=== PATIENT | male | born 1980 | race Caucasian/White ===

== ENCOUNTER 2023-01-06 00:25 | Emergency (ER) | payer MEDICAID, SELFPAY ==
[2023-01-06 00:49] VITALS: BP 130/74; PULSE 79; RESP 14; TEMP 37.2; O2SAT 99; BMI 23.6
[2023-01-06 00:54] VITALS: BP 120/89; PULSE 105; O2SAT 98
--- NOTE | 2023-01-06 02:04 | ED_ITS ---
Documented by User: Mayra Villela TRANSPORTATION TECHNICIAN-C 01/06/23 02:35 HPI - General Adult General: Chief complaint: General Medical Stated complaint: CONSTIPATION Time Seen by Provider: 01/06/23 00:55 History of Present Illness: Patient is brought in by EMS for constipation. Patient is sleeping in the room when I enter the room. He does arouse to verbal stimuli. He states that he is detoxing from fentanyl and became very dehydrated and then had a very hard large bowel movement because his rectum to bleed. He reports that his last dose of fentanyl was 5 hours ago. He reports that he has been eating and drinking today. He states that he is currently having 0 pain after his bowel movement and he is no longer bleeding. Associated symptoms: Deny chest pain, dyspnea, nausea, palpitations or vomiting Review of Systems Const: Reports: fatigue; Denies: fever(s) or chills Card: Denies: chest pain, palpitations or irregular heart rhythm Resp: Denies: dyspnea, productive cough or non-productive cough GI: Reports: constipation and pain on defecation; Denies: abdominal pain, nausea or vomiting : Reports: testicular pain (Right side testicle) and other (New sexual partner) Physical Exam Const: OTHER: Patient is mostly resting in the bed but arouses to soft verbal stimuli. Is flat a fact minimally cooperative with questioning. Neck/C-Spine: COMMON NORMALS: no JVD Resp: COMMON NORMALS: normal respiratory effort, No use of accessory muscles and clear to auscultation bilaterally AUSCULTATION: clear to auscultation bilaterally Cardio: COMMON NORMALS: no JVD, regular rate, regular rhythm, S1 normal heart sound present and S2 normal heart sound present RATE: regular rate RHYTHM: regular rhythm HEART SOUNDS: S1 normal heart sound present and S2 normal heart sound present GI: RECTAL EXAM: Yes visual inspection normal, Yes normal sphincter tone, No hemorrhoids and Yes other (Hemoccult stool not done; however, no blood noted on exam) : PENIS: normal penis and circumcised SCROTUM: Yes Cremasteric reflex present and Yes Scrotal tenderness present (Tenderness to palpation right testicle with no definitive mass appreciated.) Course Vital Signs: Vital signs: Vital Signs Temperature 99 F 01/06/23 00:49 Pulse Rate 105 H 01/06/23 00:54 Respiratory Rate 16 01/06/23 02:50 Blood Pressure 139/84 01/06/23 02:50 Pulse Oximetry 98 01/06/23 00:54 Oxygen Delivery Me thod 01/06/23 00:54 MDM - General Adult Medical Decision Making 42-year-old male in today for rectal bleeding after large hard stool was passed. Patient also reports that he is detoxing from fentanyl and his last dose was 5 hours ago. Patient states that he uses 3-5 times daily. He states that he should have came in because now he has better. Patient does state as I was leaving the room but that he has some pain in his right side testicle ongoing for about a week. He states that he has a new sexual partner and would like to be tested for STDs. Urine for gonorrhea chlamydia is done today. Advised him that we will notify him of any positive results to make sure that he has a good phone number on file. Patient request to be admitted for detox. Place an order with case management to help facilitate patient getting in contact with rehab for outpatient treatment. Encourage patient to avoid sexual activity until he is positive of his STD testing results. Encourage patient to stop fentanyl abuse. Make sure that he is staying well-hydrated and eating plenty of fiber to help with constipation. Follow-up with primary care provider. Return to the ER for new or worsening symptoms Discharge Plan Discharge Patient Disposition: Home Clinical Impression: Fentanyl use disorder, mild, abuse, Constipation, Sexual behavior with high risk of exposure to communicable disease Condition: Stable Discharge Orders: Discharge ED (Routine); Ordered 01/06/23 Ordered By: Mayra Villela Discharge Diet: As Directed Discharge Activity: Resume usual activity Patient Instructions: Opioid Withdrawal (ED), Safe Sex Practices for Adolescents (ED), Narcotic Use Disorder (ED) Activity Restrictions/Additional Instructions: I recommend refraining from sexual activity until you are certain of your test results. I recommend refraining from fentanyl use/abuse. I will place an order to case management to see if we can assist in helping you to locate a rehabilitation facility for treatment. Make sure that you are staying well-hydrated and increasing fiber in your diet to help with the constipation. Return to the ER as needed for new or worsening symptoms. Coding Level of Care Code ED [employer] for Nathalieg Fwd Documented by User: Ben Diehl DO 01/06/23 07:07 HPI - General Adult General: Chief complaint: General Medical Stated complaint: CONSTIPATION Time Seen by Provider: 01/06/23 00:55 Course Vital Signs: Vital signs: Vital Signs Temperature 99 F 01/06/23 00:49 Pulse Rate 105 H 01/06/23 00:54 Respiratory Rate 16 01/06/23 02:50 Blood Pressure 139/84 01/06/23 02:50 Pulse Oximetry 98 01/06/23 00:54 Oxygen Delivery Me thod 01/06/23 00:54 MDM - General Adult Medical Decision Making 42-year-old male in today for rectal bleeding after large hard stool was passed. Patient also reports that he is detoxing from fentanyl and his last dose was 5 hours ago. Patient states that he uses 3-5 times daily. He states that he sh ould have came in because now he has better. Patient does state as I was leaving the room but that he has some pain in his right side testicle ongoing for about a week. He states that he has a new sexual partner and would like to be tested for STDs. Urine for gonorrhea chlamydia is done today. Advised him that we will notify him of any positive results to make sure that he has a good phone number on file. Patient request to be admitted for detox. Place an order with case management to help facilitate patient getting in contact with rehab for outpatient treatment. Encourage patient to avoid sexual activity until he is positive of his STD testing results. Encourage patient to stop fentanyl abuse. Make sure that he is staying well-hydrated and eating plenty of fiber to help with constipation. Follow-up with primary care provider. Return to the ER for new or worsening symptoms Chart reviewed and patient discussed with midlevel. Agree with assessment and plan. Discharge Plan Discharge Patient Disposition: Home Clinical Impression: Fentanyl use disorder, mild, abuse, Constipation, Sexual behavior with high risk of exposure to communicable disease Condition: Stable Discharge Orders: Discharge ED (Routine); Ordered 01/06/23 Ordered By: Mayra Villela Discharge Diet: As Directed Discharge Activity: Resume usual activity Patient Instructions: Opioid Withdrawal (ED), Safe Sex Practices for Adolescents (ED), Narcotic Use Disorder (ED) Activity Restrictions/Additional Instructions: I recommend refraining from sexual activity until you are certain of your test results. I recommend refraining from fentanyl use/abuse. I will place an order to case management to see if we can assist in helping you to locate a rehabilitation facility for treatment. Make sure that you are st aying well-hydrated and increasing fiber in your diet to help with the constipation. Return to the ER as needed for new or worsening symptoms. Coding Level of Care Code ED [employer] for Rolanda Taylor
[2023-01-06 02:50] VITALS: BP 139/84; RESP 16
--- NOTE | 2023-01-09 15:06 | DCPLANNER ---
manager risk management had message to speak with patient about rehab centers. Patient would like information sent to him, nurse outreach case manager sent patient information on the different rehab facilities in the area.
--- NOTE | 2023-01-10 13:45 | DCPLANNER ---
Addendum entered by Mariana Connors 01/11/23 14:46: produce department manager called patient due to no primary care physician - patient states that he does not live in the area, and declines at this time Original Note: produce department manager due to no primary care physician - no answer at this time
== END 2023-01-06 02:53 | disposition home or self-care (01) ==
PROVIDERS: Emergency Provider Nurse Practitioner Family
DX: K59.00 Constipation, unspecified (principal); F11.10 Opioid abuse, uncomplicated; Z72.51 High risk heterosexual behavior
CPT/HCPCS: 87491; 87591; 99283

== ENCOUNTER 2023-08-28 23:46 | Emergency (ER) | payer MEDICAID, SELFPAY ==
[2023-08-28 23:48] VITALS: BP 158/79; PULSE 75; RESP 20; TEMP 36.8; O2SAT 100; BMI 20.7
--- NOTE | 2023-08-28 23:49 | XRR_ITS ---
PROCEDURE INFORMATION: Exam: XR Chest Exam date and time: 08/29/2023 12:22 AM Age: 43 years old Clinical indication: Tachypnea; Patient HX: Smoker, no HX of cancer, cp, PT says he has high BP and heart is racing, PT is an inmate and says he is detoxing from suboxone. ; Additional info: Chest pain TECHNIQUE: Imaging protocol: Radiologic exam of the chest. Views: 1 view. COMPARISON: No relevant prior studies available. FINDINGS: Lungs: Unremarkable. No consolidation. Pleural spaces: Unremarkable. No pleural effusion. No pneumothorax. Heart/Mediastinum: Unremarkable. No cardiomegaly. Bones/joints: Unremarkable. XR/XR chest 1V portable [id number] IMPRESSION: No acute findings.
--- NOTE | 2023-08-28 23:49 | ECG_ITS ---
[facility] Test Date: 2023-08-28 Pat Name: Ladarius Ch Department: Room: Gender: Male Legal Consultant: : 1980 Requested By: Mark Vega Order Number: [id number] Stephenie MD: Rashid Lira M.D. Measurements Intervals [place] Rate: 62 P: -47 OH: 155 QRS: 70 QRSD: 93 T: 60 QT: 384 QTc: 392 Interpretive Statements SINUS RHYTHM No previous ECG available for comparison Electronically Signed On 08-29-2023 8:51:34 DISTRICT SUPERVISOR by Rashid Lira M.D. [email or web address]
[2023-08-29 00:36] LABS: Troponin(5th) Baseline 7 ng/L (0-15)
[2023-08-29 00:37] LABS: Alanine Aminotransferase 23 U/L (0-41); Albumin Level 4.5 g/dL (3.5-5.2); Alkaline Phosphatase 85 U/L (40-130); Anion Gap 15.2 (5-19); Aspartate Amino Transferase 12 U/L (0-40); Blood Urea Nitrogen 12 mg/dL (6-20); Calcium 9.2 mg/dL (8.5-10.5); Carbon Dioxide 25 mmol/L (22-29); Chloride 103 mmol/L (98-107); Globulin 2.2 g/dL (1.3-4.6); Glomerular Filtration Rate 105.5 mL/min (90-130); Glucose 89 mg/dL (65-115); Osmolality Calculated 287 mOsm/kg (285-295); Potassium 4.2 mmol/L (3.5-5.1); Sodium 139 mmol/L (136-145); Total Bilirubin 0.4 mg/dL (0.15-1.2); Total Protein 6.7 g/dL (6.6-8.7)
[2023-08-29 00:38] LABS: Basophils # 0.1 10^3/uL (0.0-0.1); Eosinophils # 0.3 10^3/uL (0.0-0.8); Eosinophils % 3.8 %; Hematocrit 40.8 % (37-53); Lymphocytes # 2.3 10^3/uL (0.8-4.8); Lymphocytes % 27.6 %; Mean Corpuscular HGB Conc 34.1 g/dL (30-55); Mean Corpuscular Hemoglobin 27.3 pg (27-33); Mean Platelet Volume 10.7 fL (7.4-10.4); Monocytes # 0.9 10^3/uL (0.2-0.9); Monocytes % 10.4 %; Neutrophils # 4.67 10^3/uL (1.8-7.7); Nucleated Red Blood Cells % 0 %; Platelet Count 267 10^3/cmm (157-399); Red Cell Distribution Width 12.8 % (12.1-15.1); White Blood Count 8.19 10^3/uL (3.29-11.43)
--- NOTE | 2023-08-29 00:41 | W.ED.CHESTPA ---
HPI - Chest Pain General: Chief Complaint: Chest Pain Stated Complaint: SOB, CP Time Seen by Provider: 08/28/23 23:48 History of Present Illness: patient presents to the ER with complaints of intermittent chest pain, shortness of breath and nausea and vomiting today. Patient states he is in half-way and is been not getting his Suboxone and has been on for quite some time. Patient thinks he is detoxing off of Suboxone. Patient has done this several times in the past when he has been in half-way. Patient has no cardiac history except hypertension. Patient has no allergies. No surgeries. Review of Systems General: Reports: 10 or more systems reviewed and unremarkable except in HPI and below Physical Exam Const: COMMON NORMALS: no acute distress, average body habitus, patient oriented x3, no limitations, healthy appearing, alert and well nourished HENMT: COMMON NORMALS: normocephalic, atraumatic, hearing grossly normal bilaterally, external ears normal, Normal external nose present, moist oral mucous membranes and oropharynx normal HEAD & SCALP: normocephalic and atraumatic NOSE: Normal external nose present EXTERNAL EAR: Yes external ears normal Neck/C-Spine: COMMON NORMALS: no JVD Chest: COMMONS NORMALS: normal inspection of the chest and normal palpation of entire chest wall Resp: COMMON NORMALS: normal respiratory effort, No retractions, No use of accessory muscles and clear to auscultation bilaterally AUSCULTATION: clear to auscultation bilaterally Cardio: COMMON NORMALS: no JVD, regular rate, regular rhythm, S1 normal heart sound present, S2 normal heart sound present, No gallops present (Cardio), No clicks present (Cardio), No murmurs present (Cardio) and No rub (Cardio) RATE: regular rate RHYTHM: regular rhythm HEART SOUNDS: S1 normal heart sound present and S2 normal heart sound present GI: COMMON NORMALS: Normal to inspection, nondistended, normoactive bowel sounds present, Soft to palpation, non-tender, No hepatosplenomegaly present and no masses PALPATION: Yes Soft to palpation and Yes No hepatosplenomegaly present : COMMON NORMALS: Yes no CVA tenderness BLADDER/KIDNEY EXAM: Yes no CVA tenderness Back/Pelvis: COMMON NORMALS: no CVA tenderness Neuro: COMMON NORMALS: patient oriented x3 SENSORIUM/ORIENTATION: Yes alert Course Vital Signs: Vital signs: Vital Signs Temperature 98.2 F 08/28/23 23:48 Pulse Rate 75 08/28/23 23:48 Respiratory Rate 20 H 08/28/23 23:48 Blood Pressure 158/79 08/28/23 23:48 Pulse Oximetry 100 08/28/23 23:48 Oxygen Delivery Me thod Room Air 08/28/23 23:48 MDM - Chest Pain Medical Decision Making Upon further discussion with the nurses patient stated to them that he made up the story about having chest pain just to get his Suboxone. Patient is denying the second troponin draw. Patient be discharged back to half-way. Differential Diagnosis Unlikely acute massive pulmonary embolism, acute respiratory failure, acute myocardial infarction, cardiac arrest or sudden cardiac Medical Records I reviewed the patient's medical records. Lab Data I reviewed the patient's lab results. 08/29/23 00:34 08/28/23 00:13 Radiology Impressions Chest X-Ray 08/28/23 23:49 IMPRESSION: No acute findings. Laboratory Results WBC 8.19 10^3/uL (3.29-11.43) 08/29/23 00:34 Corrected WBC Cancelled 08/28/23 00:13 RBC 5.10 10^6/uL (3.85-5.65) 08/29/23 00:34 Hgb 13.90 g/dL (11.27-16.99) 08/29/23 00:34 Hct 40.8 % (37-53) 08/29/23 00:34 MCV 80.0 fl (82-101) L 08/29/23 00:34 MCH 27.3 pg (27-33) 08/29/23 00:34 MCHC 34.1 g/dL (30-55) 08/29/23 00:34 RDW 12.8 % (12.1-15.1) 08/29/23 00:34 Plt Count 267 10^3/cmm (157-399) 08/29/23 00:34 MPV 10.7 fL (7.4-10.4) H 08/29/23 00:34 Gran % Cancelled 08/28/23 00:13 Neut % (Auto) 57.0 % 08/29/23 00:34 Lymph % (Auto) 27.6 % 08/29/23 00:34 Sampson % (Auto) 10.4 % 08/29/23 00:34 Eos % (Auto) 3.8 % 08/29/23 00:34 Baso % (Auto) 1.0 % 08/29/23 00:34 Neut # (Auto) 4.67 10^3/uL (1.8-7.7) 08/29/23 00:34 Lymph # (Auto) 2.3 10^3/uL (0.8-4.8) 08/29/23 00:34 Sampson # (Auto) 0.9 10^3/uL (0.2-0.9) 08/29/23 00:34 Eos # (Auto) 0.3 10^3/uL (0.0-0.8) 08/29/23 00:34 Baso # (Auto) 0.1 10^3/uL (0.0-0.1) 08/29/23 00:34 Absolute Gran (auto) Cancelled 08/28/23 00:13 Nucleated RBC % (auto) 0 % 08/29/23 00:34 Nucleated RBCs # 0.0 /100WBC 08/29/23 00:34 Sodium 139 mmol/L (136-145) 08/28/23 00:13 Potassium 4.2 mmol/L (3.5-5.1) 08/28/23 00:13 Chloride 103 mmol/L (98-107) 08/28/23 00:13 Carbon Dioxide 25 mmol/L (22-29) 08/28/23 00:13 Anion Gap 15.2 (5-19) 08/28/23 00:13 BUN 12 mg/dL (6-20) 08/28/23 00:13 Creatinine 0.8 mg/dL (0.7-1.2) 08/28/23 00:13 GFR Calculation 105.5 mL/min (90-130) 08/28/23 00:13 Glucose 89 mg/dL (65-115) 08/28/23 00:13 Calculated Osmolality 287 mOsm/kg (285-295) 08/28/23 00:13 Calcium 9.2 mg/dL (8.5-10.5) 08/28/23 00:13 Total Bilirubin 0.4 mg/dL (0.15-1.2) 08/28/23 00:13 AST 12 U/L (0-40) 08/28/23 00:13 ALT 23 U/L (0-41) 08/28/23 00:13 Alkaline Phosphatase 85 U/L (40-130) 08/28/23 00:13 Troponin T Baseline 7 ng/L (0-15) 08/28/23 00:13 Total Protein 6.7 g/dL (6.6-8.7) 08/28/23 00:13 Albumin 4.5 g/dL (3.5-5.2) 08/28/23 00:13 Globulin 2.2 g/dL (1.3-4.6) 08/28/23 00:13 All radiology interpretation(s) finalized by discharge EKG Data EKG 1: I personally reviewed and interpreted this EKG as follows: EKG interpretation date: 08/28/23 EKG interpretation time: 23:50 Prior EKG tracings: not available for review Interpretation: EKG shows ventricular rate 62 beats a minute, DE interval 155, QRS duration 93, QTc of 390, sinus rhythm with no ST-T wave changes. Discharge Plan Discharge Patient Disposition: Home Clinical Impression: Malingerer Condition: Stable Discharge Orders: Discharge ED (Routine); Ordered 08/29/23 Ordered By: Mark Vega Activity Restrictions/Additional Instructions: your lab work was benign. Please follow-up with your physician in half-way for your malingering and drug-seeking behavior Coding Level of Care Code ED Supervisor [employer]illing [employer] for Rolanda Taylor
--- NOTE | 2023-08-29 01:38 | PC.NURSE ---
Alondra found nurse and stated, He wants you guys to know that he fabricated the chest pain, wants a suboxone, and wants to leave. Dr Vega notified.
[2023-08-29 02:15] VITALS: BP 153/96; PULSE 72; RESP 18; O2SAT 99
--- NOTE | 2023-08-29 02:23 | PC.NURSE ---
Patient was being discharged back to longterm. When nurse informed patient that the dr had not prescribed any medications, patient stated Well, I need to see that Dr right now. I'm not leaving until I get something. Dr Vega notified; Dr Vega told this nurse that he would not conform to the patient's medication request. This information was relayed to the patient, who yelled, This is bullshit. You guys are supposed to help me. I'm going to stop by that doctor's office. Nurse informed patient that he was formally discharged and patient left with humidifier operator with all paperwork and no incident.
== END 2023-08-29 02:29 | disposition home or self-care (01) ==
PROVIDERS: Emergency Provider Emergency Medicine
DX: Z76.5 Malingerer [conscious simulation] (principal)
CPT/HCPCS: 36415; 71045; 80053; 84484; 85025; 93005; 99285